=== PATIENT | female | born 1985 | race American Indian/Alaskan Native ===

== ENCOUNTER 2017-05-28 13:00 | Emergency (ER) | payer MEDICAID, OTHER ==
[2017-05-28 13:20] VITALS: TEMP 98.6; O2SAT 98
[2017-05-28 13:23] VITALS: RESP 18
--- NOTE | 2017-05-28 13:49 | ED PDOC ---
Arrival/HPI - General Chief Complaint: Female Genitourinary Time Seen by Provider: 05/28/17 13:21 Historian: Patient - History of Present Illness Narrative History of Present Illness (Text): 05/28/17 13:37 Comfort Fuentes is a 32 year old female who presents to the emergency department complaining of a burning sensation and itching to her vaginal area for a few days. Patient states that symptoms began as burning dysuria 3 weeks ago. At present, only the burning sensation and irritation to vaginal area remains. Patient denies any nausea, vomiting, diarrhea, vaginal discharge, back pain, or any other complaint at this time. Patient endorses that her last menstrual period was last month. PMD: Dr. Tacho Christensen Time/Duration: < month Symptom Onset: Gradual Symptom Course: Unchanged Activities at Onset: Light Context: Home Past Medical History - Provider Review Nursing Documentation Reviewed: Yes - Infectious Disease Hx of Infectious Diseases: None - Tetanus Immunization Tetanus Immunization: Unknown - Cardiac Hx Cardiac Disorders: No - Pulmonary Hx Respiratory Disorders: No - Neurological Hx Neurological Disorder: No - HEENT Hx Sinusitis: Yes - Renal Hx Renal Disorder: No - Endocrine/Metabolic Hx Endocrine Disorders: No - Hematological/Oncological Hx Blood Disorders: No - Integumentary Hx Dermatological Disorder: No - Musculoskeletal/Rheumatological Hx Musculoskeletal Disorders: No - Gastrointestinal Hx Gastrointestinal Disorders: Yes Other/Comment: acid reflux - Psychiatric Hx Psychophysiologic Disorder: No Hx Anxiety: No Hx Bipolar Disorder: No Hx Depression: No Hx Emotional Abuse: No Hx Hallucinations: No Hx Panic Disorder: No Hx Post Traumatic Stress Disorder: No Hx Psychosis: No Hx Physical Abuse: No Hx Schizophrenia: No Hx Sexual Abuse: No Hx Substance Use: No - Anesthesia Hx Anesthesia: No Hx Anesthesia Reactions: No Hx Malignant Hyperthermia: No - Suicidal Assessment Feels Threatened In Home Enviroment: No Family/Social History - Physician Review Nursing Documentation Reviewed: Yes Family/Social History: No Known Family HX Smoking Status: Never Smoked Hx Alcohol Use: No Hx Substance Use: No Allergies/Home Meds Allergies/Adverse Reactions: Allergies No Known Allergies Allergy (Verified 06/14/15 13:25) Review of Systems - Physician Review All systems were reviewed & negative as marked: Yes - Review of Systems Constitutional: absent: Fevers, Night Sweats Gastrointestinal: absent: Abdominal Pain, Nausea, Vomiting Genitourinary Female: Dysuria. absent: Frequency, Hematuria, Urine Output Changes, Vaginal Bleeding, Vaginal Discharge Physical Exam Vital Signs Reviewed: Yes Vital Signs Temp Pulse Resp BP Pulse Ox 05/28/17 13:22 98.6 F 70 18 120/80 98 05/28/17 13:13 98.6 F 70 16 120/80 98 Temperature: Afebrile Blood Pressure: Normal Pulse: Regular Respiratory Rate: Normal Appearance: Positive for: Well-Appearing, Non-Toxic, Comfortable Pain Distress: None Mental Status: Positive for: Alert and Oriented X 3 - Systems Exam Head: Present: Atraumatic, Normocephalic Abdomen: Present: Normal Bowel Sounds. No: Tenderness, Distention, Peritoneal Signs Genitourinary/Pelvic Exam: Present: Normal External Genitalia, Vaginal Discharge (thin white dc), Other (Exam chaperoned by mayda Stephens and internal exam chaperoned by dory Ortega). No: Adenexal Tenderness, Adenexal Mass Lower Extremity: Present: Normal Inspection. No: Edema Medical Decision Making ED Course and Treatment: 05/28/17 13:37 Impression: 32 year old female complaining of a burning sensation and itching to her vaginal area for a few days. Differential Diagnosis included but are not limited to: STI (though patient denies any vaginal intercourse and says she is a lesbian) vs UTI vs herpes Plan: -- Urinalysis -- Reassess and disposition Prior Visits: Notes and results from previous visits were reviewed. Patient last seen in the ED on 06/14/15 for eye pain for 1 day. Patient was discharged home. Progress Notes: 05/28/17 15:23 Will d/c on macrobid and pyridium and treat for vaginal candidiasis and send chlamydia/GC. - Lab Interpretations Lab Results: Lab Results 05/28/17 14:03: Urine Color Yellow, Urine Appearance Clear, Urine pH 6.5, Ur Specific Aristes 1.010, Urine Protein Negative, Urine Glucose (UA) Negative, Urine Ketones Negative, Urine Blood Trace-lysed H, Urine Nitrate Negative, Urine Bilirubin Negative, Urine Urobilinogen 0.2, Ur Leukocyte Esterase Trace H , Urine RBC 0 - 2, Urine WBC 0 - 2, Ur Epithelial Cells 0 - 2, Urine Bacteria Few I have reviewed the lab results: Yes - Scribe Statement The provider has reviewed the documentation as recorded by the Mayda Stephens Provider Scribe Attestation: All medical record entries made by the Tyroneibcarol were at my direction and personally dictated by me. I have reviewed the chart and agree that the record accurately reflects my personal performance of the history, physical exam, medical decision making, and the department course for this patient. I have also personally directed, reviewed, and agree with the discharge instructions and disposition. Disposition/Present on Arrival - Present on Arrival Any Indicators Present on Arrival: No History of DVT/PE: No History of Uncontrolled Diabetes: No Urinary Catheter: No History of Decub. Ulcer: No History Surgical Site Infection Following: None - Disposition Have Diagnosis and Disposition been Completed?: Yes Diagnosis: Dysuria Disposition: HOME/ ROUTINE Disposition Time: 15:20 Patient Plan: Discharge Patient Problems: Current Active Problems Problem Status Onset Dysuria Acute Condition: GOOD Discharge Instructions (ExitCare): Dysuria (ED) Additional Instructions: Take the medication as prescribed. Avoid any potential lotions or perfumes or creams applied to the affected area. After completion of macrobid script, take the diflucan. Follow up with gynecology. Return to the emergency department if any new concerning symptoms. Prescriptions: Fluconazole [Diflucan] 1 tab PO ONCE 1 Days Nitrofurantoin Macrocrystals [Macrobid] 100 mg PO BID #14 cap Phenazopyridine HCl [Pyridium] 1 tab PO TID PRN #6 tablet PRN Reason: Urinary Discomt Referrals: Tacho Christensen DO [Primary Care Provider] - Follow up with primary Giselle Barfield MD [Staff Provider] - [facility] - Follow up with primary Forms: [employer] (I[place]ic)
[2017-05-28 14:07] LABS: PH,URINE 6.5 (4.7-8.0); URINE BILIRUBIN NEGATIVE (NEGATIVE); URINE BLOOD TRACE-LYSED (NEGATIVE); URINE GLUCOSE (UA) NEGATIVE (NEGATIVE); URINE LEUKOCYTE ESTERASE TRACE Leu/uL (NEGATIVE); URINE NITRATE NEGATIVE (NEGATIVE); URINE PROTEIN NEGATIVE mg/dL (<30 mg/dL); URINE UROBILINOGEN 0.2 E.U./dL (<1 E.U./dL)
[2017-05-28 14:12] LABS: URINE APPEARANCE CLEAR (CLEAR); URINE COLOR YELLOW (YELLOW)
[2017-05-28 14:38] LABS: URINE BACTERIA FEW (NEG); URINE EPITHELIAL CELLS 0 - 2 /hpf (0-5); URINE RBC 0 - 2 /hpf (0-2); URINE WBC 0 - 2 /hpf (0-6)
[2017-05-28 16:04] VITALS: BP 118/71; PULSE 67
== END 2017-05-28 16:03 | disposition home or self-care (01) ==
LOC: ED 13:00
DX: R30.0 Dysuria (principal)